=== PATIENT | female | born 1980 | race Caucasian/White ===

== ENCOUNTER 2016-11-24 15:00 | Emergency (ER) | payer OTHER ==
[2016-11-24 15:19] VITALS: BP 125/71
--- NOTE | 2016-11-24 15:42 | UC ---
Shortness of Breath HPI - HPI Summary HPI Summary: Pt presents to the ED to [facility] with complaint of feeling "real bad." Pt states this morning she woke with a sore throat and right hear pain. Pt states progressively had developed nausea and had 1 episode of vomiting and diarrhea. Pt states she has had 3 episodic waves of shortness of breath and chest pain which causes her to feel panic. Pt states pain is sharp and feels in chest and in back. No trauma. Pt states she called her who advised she go to the ED - pt states drive herself here instead. Pt denies TAMAYO, vision changes. Pt denies h/o similar. Pt denies TAMAYO, lightheadedness. No trauma. Pt is a 36 yo female with a PMH significant for SLE and fibromyalgia. 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 - History of Current Complaint Chief Complaint: UCChestPain Stated Complaint: SHORTNESS OF BREATH Time Seen by Provider: 11/24/16 15:03 Hx Obtained From: Patient Hx Last Menstrual Period: 11/07/16 Onset/Duration: Gradual Onset Timing: Constant Current Severity: Moderate Dyspnea At: Rest Associated Signs & Symptoms: Negative: Cough (Productive), Wheezing - Allergy/Home Medications Allergies/Adverse Reactions: Allergies Allergy/AdvReac Type Severity Reaction Status Date / Time Erythromycin Allergy Unknown Verified 11/24/16 15:10 Reaction Details Gluten Meal Allergy GI Upset Verified 11/24/16 15:10 PMH/Surg Hx/FS Hx/Imm Hx Previously Healthy: Yes Other Endocrine History: SLE - not current treatment Other Neurological History: fibromyalgia - Surgical History Surgical History: Yes Surgery Procedure, Year, and Place: c-sect x2, gall bladder - Family History Known Family History: Positive: Diabetes - Social History Lives: With Family Alcohol Use: None Substance Use Type: None Smoking Status (MU): Never Smoked Tobacco Review of Systems Constitutional: Fatigue Skin: Negative Eyes: Negative ENT: Sore Throat Respiratory: Shortness Of Breath Cardiovascular: Chest Pain Gastrointestinal: Vomiting, Diarrhea, Nausea Genitourinary: Negative Motor: Negative Neurovascular: Negative Musculoskeletal: Negative Neurological: Negative Psychological: Negative All Other Systems Reviewed And Are Negative: Yes Physical Exam Triage Information Reviewed: Yes Appearance: Well-Appearing, Well-Nourished, Pain Distress - anxious, tearful, intermittent waves of increased epigastric and complaint of pain Vital Signs: Initial Vital Signs Temp 98.2 F 11/24/16 15:02 Pulse 114 11/24/16 15:02 Resp 22 11/24/16 15:02 BP 150/113 11/24/16 15:02 Pulse Ox 99 11/24/16 15:02 Eye Exam: Normal ENT Exam: Normal ENT: Positive: Hearing grossly normal, Pharynx normal, TMs normal Dental Exam: Normal Neck exam: Normal Neck: Positive: Supple, Nontender, No Lymphadenopathy Respiratory Exam: Normal Respiratory: Positive: Chest non-tender, Lungs clear, Normal breath sounds, No respiratory distress, No accessory muscle use. Negative: Rhonchi, Wheezing Cardiovascular Exam: Normal Cardiovascular: Positive: RRR, No Murmur, Pulses Normal Abdominal Exam: Normal Abdomen Description: Positive: Nontender, No Organomegaly. Negative: CVA Tenderness (R), CVA Tenderness (L) Bowel Sounds: Positive: Present Musculoskeletal Exam: Normal Neurological Exam: Normal Psychological: Positive: Other: - anxious, tearful Skin Exam: Normal Shortness of Breath Dx - Course Course Of Treatment: Pt presents reporting multiple symptoms increasing since this morning which include sore throat, nausea, vomiting, and now intermittent chest pain, back pain and sob. Pt with waves of anxiousness related to pain. Pt with a h/o SLE and medical noncompliance. Pt VS rechecked and improved HR and BP improved. Explained to pt diferential is broad including CAD, pancreatitis, PE, PNA, dissection - given SLE. Recommend pt go to ED for further evaluation. not appropriate for pt to drive - offered EMS. Pt spoke with - he indicated he would come for her and drive. Spoke to at bedside - states understanding and agreement with plan. Will discharge with plan direct to ED - no stops, no po. state understanding. Call 911 with any change - Differential Dx/Diagnosis Provider Diagnoses: chest pain, dyspnea, nausea, vomiting Discharge - Discharge Plan Condition: Good Disposition: TRANS HIGHER LVL OF CARE FAC Discharge Disposition Comment: Pt discharged from - to ED, [facility] , by private care Patient Education Materials: Dyspnea (ED) Referrals: Ursula Gracia MD [Primary Care Provider] - Additional Instructions: - The doctor that examined you today thinks you need additional testing that can not be completed at urgent to identify the cause of your symptoms. you are at higher risk for medical conditions because of your Lupus. - You declined an ambulance and are going private vehicle to the hospital - you is here to drive your - You should do directly to the emergency department- to not make any stops, do not eat anything until you are further evaluated - If your symptoms change or you have any other concerns - dry chain puller and call 911
== END 2016-11-24 15:48 | disposition short-term general hospital (02) ==
LOC: UCCORT 15:00
DX: R07.89 Other chest pain (principal); R06.00 Dyspnea, unspecified; R11.2 Nausea with vomiting, unspecified; Z88.1 Allergy status to other antibiotic agents; M79.7 Fibromyalgia; Z90.49 Acquired absence of other specified parts of digestive tract
CPT/HCPCS: 93005; 99211; G0463